=== PATIENT | female | born 1995 | race Two or more races ===

== ENCOUNTER 2019-05-07 17:28 | Emergency (ER) | payer MEDICAID, OTHER ==
[~2019-05-07] VITALS: Ht 160 cm; Wt 59.0 kg
[2019-05-07 17:28] VITALS: BP 134/76
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
--- NOTE | 2019-05-07 18:12 | NUR ---
ED Nurse Note:\ patient came back from CT in stable condition
--- NOTE | 2019-05-07 18:33 | Diagnostic Imaging Report ---
CT FACIAL Without Contrast: Small high density focus deep to a skin defect at the rightward upper nose which may represent a displaced chip fracture fragment or foreign body with overlying laceration. Correlate with focal exam. Otherwise no visualized fracture or malalignment of the maxillofacial structures. The orbits and globes are intact.
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
[2019-05-07] MEDS ORDERED: CLARITIN-D 121 EAC1 ORAL (18:37)
[2019-05-07] MEDS ORDERED: IBU800 MG PO (18:37)
[2019-05-07 18:56] VITALS: BP 134/76
--- NOTE | 2019-05-07 18:56 | NUR ---
ER DISCHARGE NOTE: Patient is cleared to be discharged per JOCELYNE BAILEY, pt is aox4, on room air, with stable vital signs. pt was given dc and prescription instructions, pt was able to verbalize understanding, pt id band removed without complications. pt is able to ambulate with steady gait. pt took all belongings.
== END 2019-05-07 18:57 | disposition home or self-care (01) ==
LOC: EDBD 17:28 → EMR 18:02
DX: S02.2XXA Fracture of nasal bones, initial encounter for closed fracture (principal); Y04.2XXA Assault by strike against or bumped into by another person, initial encounter
CPT/HCPCS: 70486; 99284